=== PATIENT | male | born 1960 | race Caucasian/White ===

== ENCOUNTER → 2017-05-16 | Outpatient (CLI) | payer BC ==
--- NOTE | 2017-05-16 09:07 | DIAGNOSTIC IMAGING REPORT ---
(CHEST) THORAX WITHOUT CT DOSE: 199.81 mGycm HISTORY: J44.9 Chronic obstructive pulmonary disease. 6 month follow-up of a nodule. TECHNIQUE: Multiaxial CT images of the chest were performed without contrast. COMPARISON: CT chest 10/11/2016. FINDINGS: No dominant thyroid nodule identified. No pathologic adenopathy of the chest. Heart is normal in size without pericardial effusion. Mild atherosclerotic plaquing of the thoracic aorta is present. Coronary arterial calcifications are also noted. There is mild upper lobe predominant centrilobular emphysema. No pneumothorax, pleural effusion or focal airspace consolidation. Minimal mucosal secretions are seen within the airway without significant mucous plugging. The previously described noncalcified pulmonary nodule of the apical segment right upper lobe is no longer identified. Normal branching pulmonary vascularity is now seen within this distribution on image 18 of the axial series. The previously described noncalcified pulmonary nodule of the left upper lobe is also no longer identified. No new or suspicious pulmonary nodules are identified. There is minimal subsegmental pleural parenchymal scarring of the right lung base. The upper abdominal structures are within normal limits. The soft tissues are unremarkable. Mild multilevel endplate degenerative changes are seen throughout the spine. IMPRESSION: 1. No acute cardiopulmonary process. 2. Resolution of the previously described upper lobe pulmonary nodules compatible with benign etiology. No new or suspicious pulmonary nodules are identified on today's study. 2. Mild upper lobe predominant centrilobular emphysema. 3. Mild atherosclerosis and coronary arterial disease. Electronically signed by: Wilian Lorenz M.D. 05/16/2017 9:05 AM Dictated Date/Time: 05/16/2017 8:58 AM
== END | disposition home or self-care (01) ==
LOC: C.CTS 08:43
PROVIDERS: ATTEND Internal Medicine Pulmonary Disease
DX: J44.9 Chronic obstructive pulmonary disease, unspecified (principal); I25.10 Atherosclerotic heart disease of native coronary artery without angina pectoris